=== PATIENT | male | born 1985 | race Caucasian/White ===

== ENCOUNTER 2023-03-04 12:40 | Emergency (ER) | payer SELFPAY ==
[~2023-03-04] VITALS: Ht 175.3 cm; Wt 99.8 kg
--- NOTE | 2023-03-04 12:54 | NUR ---
PT IS IN ROOM #2A. DR MCDANIELS EVALUATED THE PT
[2023-03-04] MEDS ORDERED: ACETAMINOPHEN ES 500 MG TABLET PO ONE (13:00)
[2023-03-04] MEDS ORDERED: IBUPROFEN 600 MG TABLET PO ONE (13:00)
[2023-03-04] MEDS ORDERED: ACETAMINOPHEN ES 500 MG TABLET ONE (13:05)
[2023-03-04] MEDS ORDERED: IBUPROFEN 400 MG TABLET ONE (13:05)
[2023-03-04 13:14] LABS: HEMATOCRIT 45.3 % (36.7-47.1); MEAN CORPUSCULAR HEMOGLOBIN 33.8 uug (23.8-33.4); MEAN CORPUSCULAR VOLUME 98.1 fL (73.0-96.2); PLATELET COUNT (AUTO) 278 K/uL (152-348)
[2023-03-04 13:21] LABS: CREATININE 0.9 mg/dL (0.6-1.3); POTASSIUM 3.7 mmol/L (3.5-5.1)
[2023-03-04 13:27] LABS: BILIRUBIN,DIRECT 0.2 mg/dL (0.0-0.2); BILIRUBIN,TOTAL 0.9 mg/dL (0.2-1.0); TOTAL PROTEIN, SERUM 7.7 g/dL (6.4-8.2)
--- NOTE | 2023-03-04 14:16 | NUR ---
PT WAS D/C'd TO HOME. D/C INSTRUCTIONS GIVEN TO THE PT BY DR MCDANIELS.
[2023-03-04 14:18] VITALS: BP 143/74
== END 2023-03-04 14:30 | disposition home or self-care (01) ==
LOC: ER 12:40
DX: S29.011A Strain of muscle and tendon of front wall of thorax, initial encounter (principal); R94.5 Abnormal results of liver function studies; X58.XXXA Exposure to other specified factors, initial encounter; Y93.89 Activity, other specified; Y92.89 Other specified places as the place of occurrence of the external cause; Y99.8 Other external cause status
CPT/HCPCS: 36415; 71046; 85025; 85730; 93005; A4663; A9150